=== PATIENT | male | born 1975 | race Caucasian/White ===

== ENCOUNTER 2019-08-15 20:36 | Inpatient (IN) | payer BC ==
[2019-08-15] MEDS ORDERED: HEPARIN SODIUM,PORCINE 5,000 UNIT/ML 1 ML VIAL IV PRN (21:16)
[2019-08-15] MEDS: HEPARIN SOD,PORK IN 0.45% NACL 25,000 UNIT in 0.45% NACL 1 250ML.BAG IV SCH (21:27)
--- NOTE | 2019-08-15 21:49 | ED ---
General Adult HPI - General Chief complaint: Chest Pain Stated complaint: Chest Pain Time Seen by Provider: 08/15/19 20:46 Source: patient, EMS Mode of arrival: EMS Limitations: no limitations - History of Present Illness Initial comments: Dictation was produced using Shareable[employer] dictation software. please excuse any grammatical, word or spelling errors. Chief Complaint: 44-year-old male transferred from [facility] for NSTEMI. History of Present Illness: 44-year-old male presents with NSTEMI. Patient is a 44-year-old male he was initially seen at [facility]. Patient has been having typical sounding chest pain has been ongoing intermittently for the last several days. He was worked up at [facility] found to have elevated troponin measuring 0.12. Patient states he is currently pain-free at this time. According to transferring physician patient did not have any findings of ST segment elevation MO. Transferred here for possible cardiac catheterization. Patient states he does have positive family history of acute coronary syndrome in the age of 40's. She was started on heparin. He was given aspirin. Patient's well-appearing at this time. Denies any chest pain currently. The ROS documented in this emergency department record has been reviewed and confirmed by me. Those systems with pertinent positive or negative responses have been documented in the HPI. All other systems are other negative and/or noncontributory. PHYSICAL EXAM: General Impression: Alert and oriented x3, not in acute distress HEENT: Normocephalic atraumatic, extra-ocular movements intact, pupils equal and reactive to light bilaterally, mucous membranes moist. Cardiovascular: Heart regular rate and rhythm, S1&S2 audible, no murmurs, rubs or gallops Chest: Lungs clear to auscultation bilaterally, no rhonchi, no wheeze, no rales Abdomen: Bowel sounds present, abdomen soft, non-tender, non-distended, no or ganomegaly Musculoskeletal: Pulses present and equal in all extremities, no peripheral edema Motor: no focal deficits noted Neurological: CN II-XII grossly intact, no focal motor or sensory deficits noted Skin: Intact with no visualized rashes Psych: Normal affect and mood ED course: 44-year-old male transferred from [facility] for non-ST segment elevation MO. As upon arrival are within acceptable limits. Repeat EKG was obtained showing nonspecific findings with T-wave inversion in 3. There is no findings to suggest ST segment elevation MO currently. Repeat troponin was obtained measuring at 2.050. Transfer documentation was reviewed in its entirety. Patient is currently pain-free. Discussed patient case with Dr. Harrington of [facility] physician group is willing to accept patients care. Patient continued on heparin drip. Cardiology to be consulted. EKG interpretation: Ventricular rate 77, normal sinus rhythm,. 172, QS 102, QTc 443. No MD prolongation, no QTC prolongation, no ST changes. There is a P wave inversion in lead 3. - Related Data Allergies Allergy/AdvReac Type Severity Reaction Status Date / Time No Known Allergies Allergy Verified 08/15/19 21:19 Review of Systems ROS Statement: Those systems with pertinent positive or pertinent negative responses have been documented in the HPI. ROS Other: All systems not noted in ROS Statement are negative. Past Medical History Past Medical History: No Reported History History of Any Multi-Drug Resistant Organisms: MRSA Date of last positivie culture/infection: MRSA 2003 MDRO Source:: left elbow Past Surgical History: Joint Replacement, Orthopedic Surgery Additional Past Surgical History / Comment(s): septic elbow, right elbow fx, multiple ortho surgeries. Past Psychological History: No Psychological Hx Reported Smoking Status: Never smoker Past Alcohol Use History: Occasional Past Drug Use History: None Reported General Exam Limitations: no limitations Course Vital Signs 08/15/19 08/15/19 20:41 21:30 Temperature 98.1 F Pulse Rate 89 76 Respiratory 18 18 Rate Blood Pressure 167/125 145/106 O2 Sat by Pulse 98 97 Oximetry Medical Decision Making - Lab Data Lab Results 08/15/19 Range/Units 20:52 Troponin I 2.050 H* (0.000-0.034) ng/mL Critical Care Time Critical Care Time: Yes Total Critical Care Time: 31 Disposition Clinical Impression: NSTEMI (non-ST elevated myocardial infarction) Disposition: ADMITTED IP TO THIS HOSP Condition: Fair Referrals: Fish Lopez MD [Primary Care Provider] - 1-2 days Decision Time: 21:49
[2019-08-15] MEDS ORDERED: NITROGLYCERIN SL TABS 0.4 MG TAB SUBLINGUAL PRN (21:50)
[2019-08-16] MEDS ORDERED: METOPROLOL TARTRATE 12.5 MG TAB PO SCH (00:15)
[2019-08-16] MEDS: oxyCODONE-APAP 5-325MG 1 EACH TAB PO PRN ×3 (00:50→21:28)
[2019-08-16 03:45] LABS: Cholesterol 202 mg/dL (<200); HDL Cholesterol 41 mg/dL (40-60); Triglycerides 405 mg/dL (<150)
[2019-08-16 07:28] LABS: Basophils % (A) 1 %; Eosinophils # (A) 0.3 k/uL (0-0.7); Eosinophils % (A) 3 %; HCT 40.5 % (39.0-53.0); HGB 14.6 gm/dL (13.0-17.5); Lymphocytes # (A) 1.8 k/uL (1.0-4.8); Lymphocytes % (A) 24 %; MCH 32.9 pg (25.0-35.0); MCHC 35.9 g/dL (31.0-37.0); MCV 91.4 fL (80.0-100.0); Mean Platelet Volume 6.4; Monocytes # (A) 0.5 k/uL (0-1.0); Monocytes % (A) 6 %; Neutrophils # (A) 4.8 k/uL (1.3-7.7); Neutrophils % (A) 64 %; Platelet Count 257 k/uL (150-450); RBC 4.43 m/uL (4.30-5.90); RDW 12.9 % (11.5-15.5); WBC 7.4 k/uL (3.8-10.6)
[2019-08-16 07:35] LABS: African American GFR (CKD) >90 (>60 ml/min/1.73 sqM); Anion Gap 10 mmol/L; Blood Urea Nitrogen 15 mg/dL (9-20); Calcium 9.1 mg/dL (8.4-10.2); Carbon Dioxide 23 mmol/L (22-30); Chloride 107 mmol/L (98-107); Glucose 103 mg/dL (74-99); Non-African American GFR(CKD) >90 (>60 ml/min/1.73 sqM); Potassium 3.7 mmol/L (3.5-5.1); Sodium 140 mmol/L (137-145)
--- NOTE | 2019-08-16 07:39 | P.HPIM ---
History of Present Illness H&P Date: 08/16/19 Chief Complaint: chest pain 44 -year-old male with no significant past medical history Patient comes in due to chest pain left-sided radiating to the center described it as tightness and at times sharp the worst was 6-7 out of 10 and currently was around 3-4 out of 10 in severity. Denies any associated sweating, palpitations, nausea, vomiting, shortness of breath. Patient reports that over the past 2 weeks he's been having these attacks of chest pain off and on lasting anywhere between 5 min to 1 hour what he would do is just rest and wait for the attack to go away. patient used to play a lot of sports he is athletically well developed muscular yael. 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 He reports the chest pain attacks usually happens when he is slowing down. Today as he was coming back from work he started feeling this chest pain again reported to his who insisted that he goes to the hospital to get evaluated. He went to [facility] and he was found to have elevated troponin at 0.12, EKG showed normal sinus rhythm his labs were pretty much unremarkable otherwise he was sent to our hospital for cardiology evaluation. Patient showed me cholesterol profile from December 2018 and showed LDL of 108, HDL of 35, and triglyceride of 118. He's been having annual checkups and his doctors always gave him clean bill of health Currently still reporting chest pain 3 out of 10 in severity with repeated EKG she tells showing normal sinus rhythm. Repeat troponin was elevated up to 2 in the ED patient was started on heparin drip and admitted for non-STEMI. Patient does report strong family history of premature CAD in his father side of the family Patient reported a fall 2 weeks ago on his left hip it was accidental as he tripped patient also reports cold symptoms of upper respiratory like infection around 2- 3 weeks ago which has currently resolved Review of Systems Pertinent positives as noted in HPI. All other systems were reviewed and are negative Past Medical History Past Medical History: No Reported History History of Any Multi-Drug Resistant Organisms: MRSA Date of last positivie culture/infection: MRSA 2003 MDRO Source:: left elbow Past Surgical History: Joint Replacement, Orthopedic Surgery Additional Past Surgical History / Comment(s): septic elbow, right elbow fx, multiple ortho surgeries. Past Psychological History: No Psychological Hx Reported Smoking Status: Never smoker Past Alcohol Use History: Occasional Past Drug Use History: None Reported - Past Family History Father Family Medical History: Coronary Artery Disease (CAD) Additional Family Medical History / Comment(s): father had his first PA at age 40, and multiple PA's therafter Mother Family Medical History: No Reported History Medications and Allergies Home Medications Medication Instructions Recorded Confirmed Type No Known Home Medications 08/15/19 08/15/19 History Allergies Allergy/AdvReac Type Severity Reaction Status Date / Time No Known Allergies Allergy Verified 08/15/19 21:55 Physical Exam Vitals: Vital Signs Temp Pulse Resp BP Pulse Ox 08/15/19 22:44 98.1 F 76 18 145/106 97 08/15/19 21:30 76 18 145/106 97 08/15/19 20:41 98.1 F 89 18 167/125 98 Intake and Output 08/15/19 08/15/19 08/15/19 06:59 14:59 22:59 Other: Weight 100.698 kg Constitutional: No acute distress, conversant, pleasant Eyes: Anicteric sclerae, moist conjunctiva, no lid-lag Pupils equal round reactive to light ENMT: NC/AT Oropharynx clear, no erythema, exudates Neck: Supple, FROM, no masses, or JVD No carotid bruits No thyromegaly Lungs: Clear to auscultation Clear to percussion Normal respiratory effort, no accessory muscle use Cardiovascular: Heart regular in rate and rhythm, No murmurs, gallops, or rubs No peripheral edema Abdominal: Soft Nontender, no guarding, rebound or rigidity Abdomen moving with respiration Normoactive bowel sounds No hepatomegaly, No splenomegaly No palpable mass No abdominal wall hernia noted Skin: Normal temperature, tone, texture, turgor No induration No subcutaneous nodules No rash, lesions No ulcers Extremities: there is large area of ecchymosis and bruising over the left hip No digital cyanosis No clubbing Pedal pulses intact and symmetrical Radial pulses intact and symmetrical No calf tenderness Psychiatric: Alert and oriented to person, place and time Appropriate affect fair judgement Neuro Muscles Strength 5/5 in all 4 extremities Sensation to light touch grossly present throughout Cranial nerves II-XII grossly intact No focal sensory deficits Lymphatics: no palpable cervical or supraclavicular , or inguinal lymph nodes Results CBC & Chem 7: 08/16/19 03:02 Labs: Abnormal Lab Results - Last 24 Hours (Table) 08/15/19 Range/Units 20:52 Troponin I 2.050 H* (0.000-0.034) ng/mL Assessment and Plan Assessment: 44-year-old male with no significant past medical history. transferred from [facility] for chest pain and elevated troponins to rule out ACS. Plan: NSTEMI and chest pain cardiac monitoring Cardiac consult Heparin drip Aspirin Low-dose beta machelle due to tachycardia Patient refuses morphine or Dilaudid, opted in for Percocet as it worked for him in the past, will be ordered when necessary for uncontrolled pain Follow-up cardiac enzymes Lipid profile Nothing by mouth after midnight I also have concerns for myocarditis due to his recent history of upper respiratory viral infection and atypical features of his chest pain, ordered echocardiogram CODE STATUSfull code DVT prophylaxis:on heparin drip for acute coronary syndrome Discussed with: Patient, ER, RN Anticipated length of stay < than [address]: home A total of 60 minutes was spent on the care of this complex patient more than 50% of the time was spent in counseling and care coordination.
[2019-08-16] MEDS: ATORVASTATIN 40 MG TAB PO SCH (08:34)
[2019-08-16] MEDS: METOPROLOL TARTRATE 25 MG TAB PO SCH ×2 (08:35→21:28)
[2019-08-16] MEDS: ASPIRIN 325 MG TAB PO SCH (08:35)
[2019-08-16] MEDS ORDERED: ALPRAZolam 0.25 MG TAB PO PRN (09:33)
[2019-08-16] MEDS ORDERED: SODIUM CHLORIDE 0.9% 1,000 ML in EMPTY BAG 1 BAG IV ONE (09:33)
[2019-08-16] MEDS ORDERED: ALPRAZolam 0.5 MG TAB PO PRN (09:33)
[2019-08-16] MEDS ORDERED: LORazepam 2 MG/ML INJ IV PRN ×3 (10:49)
[2019-08-16] MEDS ORDERED: THIAMINE 100 MG/ML 2 ML VIAL IM STA (10:49)
--- NOTE | 2019-08-16 10:54 | P.PN ---
Subjective Progress Note Date: 08/16/19 Principal diagnosis: Non-STEMI Patient is doing fairly well today. He denies any chest pain or shortness of breath. Patient informed me that he usually drinks 6-8 beers daily ap proximately 5 days per week. He does not smoke cigarettes. He has significant family history of premature coronary artery disease in his father. Objective - Vital Signs Vital signs: Vital Signs Temp 97.1 F L 08/16/19 04:00 Pulse 73 08/16/19 04:00 Resp 17 08/16/19 04:00 BP 136/78 08/16/19 04:00 Pulse Ox 99 08/16/19 04:00 Intake & Output 08/15/19 08/16/19 08/16/19 18:59 06:59 18:59 Intake Total 81.477 71.698 Balance 81.477 71.698 Weight 102.9 kg Intake: IV 20 Invasive Line 1 20 Intake, IV Titration 61.477 71.698 Amount Heparin Sod,Pork in 0.45% 61.477 71.698 NaCl 25,000 unit In 0.45 % NaCl 1 250ml.bag @ 9 UNITS/KG/HR 9.063 mls/hr IV .Q24H [facility] Rx#: [id number] Other: Voiding Method Toilet # Voids 1 1 - Exam General: The patient is awake and alert, in no distress Eye: there is normal conjunctiva bilaterally. Neck: The neck is supple, there is no JVD. Cardiovascular: Normal S1-S2, no S3-S4, no murmurs. Respiratory: Lungs clear to auscultation bilaterally Gastrointestinal: Abdomen is soft, nontender Musculoskeletal: There is no pedal edema. Neurological:. Speech is normal. Skin: Skin is warm and dry - Labs CBC & Chem 7: 08/16/19 03:02 08/16/19 03:02 Labs: Abnormal Lab Results - Last 24 Hours (Table) 08/15/19 08/16/19 08/16/19 Range/Units 20:52 03:02 03:02 APTT (22.0-30.0) sec Glucose (74-99) mg/dL Troponin I 2.050 H* 2.950 H* (0.000-0.034) ng/mL Triglycerides 405 H (<150) mg/dL Cholesterol 202 H (<200) mg/dL 08/16/19 08/16/19 08/16/19 Range/Units 03:02 08:25 08:25 APTT 32.7 H (22.0-30.0) sec Glucose 103 H (74-99) mg/dL Troponin I 3.090 H* (0.000-0.034) ng/mL Triglycerides (<150) mg/dL Cholesterol (<200) mg/dL Assessment and Plan Assessment: 1. Non-ST elevation MD. Management medically currently on IV heparin, aspirin, metoprolol, and Lipitor. Patient was seen and evaluated by cardiology. Plan for left heart catheterization later today. Echocardiogram pending. 2. Hyperlipidemia with hypertriglyceridemia, started on Lipitor daily. 3. Alcohol abuse, counseled extensively to cut down. [facility] protocol as needed. Today, I reviewed his medication list and lab work results. We will continue current regimen. Repeat lab work in the morning. Appreciate cardiology recommendations.
--- NOTE | 2019-08-16 12:37 | P.CRDCN ---
History of Present Illness History of present illness: HISTORY OF PRESENTING ILLNESS This is a pleasant 44-year-old male with no significant past medical history. He states his father had his first cardiac event in his 40s. He does drink alcohol daily. He presented to [facility] with chest pain. 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 We have been asked to see him in consultation for chest pain with troponin elevation. Is seen and examined resting comfortably in bed in no acute distress. He states for the previous one week he has been having intermittent episodes of chest discomfort in the midsternal region. Initially has symptoms of common they would subside with rest lasting less than 5 minutes at a time. However on Sunday morning he woke up around 3:00 in the morning with a heavy crushing type chest pain in the midsternal region. This discomfort persisted throughout the day while he was at work with no specific aggravating or alleviating factor. There was episodes where radiate through to his back and down his left arm. He denies associated shortness of breath, dizziness, palpitations, nausea, vomiting or diaphoresis. After work and having ongoing chest discomfort he decided to present to the emergency department to [facility]. Upon arrival there he was noted to have his initial troponin was elevated at 0.12. He was transferred here for further cardiac evaluation. Subsequent troponins were 2.05, 2.95 and 3.09. He continues to have a vague mild achy discomfort in the midsternal region. DIAGNOSTICS EKG reveals sinus mechanism with no acute ST or T wave abnormalities noted. Isolated T-wave inversions in lead 3. Chest xray at [facility] was unremarkable. Laboratory reviewed, CBC unremarkable, sodium 140, potassium 3.7, creatinine 0.87, troponin 2.05, 2.95 and 3.09, triglycerides 405, LDL unable to be a loculated. He takes no daily cardiac medications. REVIEW OF SYSTEMS At the time of my exam: CONSTITUTIONAL: Denies fever or chills. CARDIOVASCULAR: Complains of chest pain. Denies shortness of breath, orthopnea, PND or palpitations. RESPIRATORY: Denies cough. GASTROINTESTINAL: Denies abdominal pain, diarrhea, constipation, nausea or vomiting. MUSCULOSKELETAL: Denies myalgias. NEUROLOGIC: Denies numbness, tingling or weakness. ENDOCRINE: Denies fatigue, weight change, polydipsia or polyurina. GENITOURINARY: Denies burning, hematuria or urgency with micturation. HEMATOLOGIC: Denies history of anemia or bleeding. PHYSICAL EXAMINATION Blood pressure 131/9674 heart rate 74 afebrile and maintaining oxygen saturaiton on room air. CONSTITUTIONAL: No apparent distress. HEENT: Head is normocephalic. Pupils are equal, round. Sclerae anicteric. Mucous membranes of the mouth are moist. No JVD. No carotid bruit. CHEST EXAMINATION: Lungs are clear to auscultation. No chest wall tenderness is noted on palpation or with deep breathing. HEART EXAMINATION: Regular rate and rhythm. S1, S2 heard. No murmurs, gallops or rub. ABDOMEN: Soft, nontender. Positive bowel sounds. EXTREMITIES: 2+ peripheral pulses, no lower extremity edema and no calf tenderness. NEUROLOGIC EXAMINATION: Patient is awake, alert and oriented x3. ASSESSMENT Non-ST elevated myocardial infarction Dyslipidemia Significant family history for premature coronary artery disease Daily alcohol intake Obesity, BMI 33 PLAN Echocardiogram has been obtained and reviewed. Recommend proceeding with cardiac catheterization to assess coronary arteries. I have discussed the risks, benefits and alternative therapies for the above- mentioned procedure and for both sedation/analgesia as well as necessary blood product administration, if indicated, as they pertain to this patient. The patient has indicated understanding and acceptance of the risks and procedures discussed. Questions have been answered appropriately and he is agreeable to move forward with the above-stated procedure. Initiate atorvastatin 40 mg daily, Lopressor 25 mg twice a day and continue heparin infusion until just prior to cardiac catheterization. Complete alcohol cessation recommended. Diet and exercise recommended for lowering of cholesterol and weight loss. Further recommendations to follow based upon clinical course. Thank you kindly for this consultation. Nurse Practitioner note has been reviewed, I agree with a documented findings and plan of care. Patient was seen and examined. Past Medical History Past Medical History: No Reported History History of Any Multi-Drug Resistant Organisms: MRSA Date of last positivie culture/infection: MRSA 2003 MDRO Source:: left elbow Past Surgical History: Joint Replacement, Orthopedic Surgery Additional Past Surgical History / Comment(s): septic elbow, right elbow fx, multiple ortho surgeries. Past Psychological History: No Psychological Hx Reported Smoking Status: Never smoker Past Alcohol Use History: Occasional Past Drug Use History: None Reported - Past Family History Father Family Medical History: Coronary Artery Disease (CAD) Additional Family Medical History / Comment(s): father had his first KS at age 40, and multiple KS's therafter Mother Family Medical History: No Reported History Medications and Allergies Home Medications Medication Instructions Recorded Confirmed Type No Known Home Medications 08/15/19 08/15/19 History Allergies Allergy/AdvReac Type Severity Reaction Status Date / Time No Known Allergies Allergy Verified 08/15/19 21:55 Physical Exam Vitals: Vital Signs Temp Pulse Pulse Resp BP BP Pulse Ox 08/16/19 04:00 97.1 F L 73 17 136/78 99 08/16/19 00:00 98.6 F 81 21 139/97 98 08/15/19 22:44 98.1 F 76 18 145/106 97 08/15/19 21:30 76 18 145/106 97 08/15/19 20:41 98.1 F 89 18 167/125 98 Intake and Output 08/15/19 08/16/19 08/16/19 22:59 06:59 14:59 Intake Total 81.477 Balance 81.477 Intake: IV 20 Invasive Line 1 20 Intake, IV Titration 61.477 Amount Heparin Sod,Pork in 0.45% 61.477 NaCl 25,000 unit In 0.45 % NaCl 1 250ml.bag @ 9 UNITS/KG/HR 9.063 mls/hr IV .Q24H [facility] Rx#: [id number] Other: Voiding Method Toilet # Voids 1 Weight 100.698 kg 102.9 kg Results 08/16/19 03:02 08/16/19 03:02 Cardiac Enzymes 08/15/19 08/16/19 Range/Units 20:52 03:02 Troponin I 2.050 H* 2.950 H* (0.000-0.034) ng/mL Coagulation 08/16/19 Range/Units 03:02 APTT 27.5 (22.0-30.0) sec Lipids 08/16/19 Range/Units 03:02 Triglycerides 405 H (<150) mg/dL Cholesterol 202 H (<200) mg/dL HDL Cholesterol 41 (40-60) mg/dL CBC 08/16/19 Range/Units 03:02 WBC 7.4 (3.8-10.6) k/uL RBC 4.43 (4.30-5.90) m/uL Hgb 14.6 (13.0-17.5) gm/dL Hct 40.5 (39.0-53.0) % Plt Count 257 (150-450) k/uL Comprehensive Metabolic Panel 08/16/19 Range/Units 03:02 Sodium 140 (137-145) mmol/L Potassium 3.7 (3.5-5.1) mmol/L Chloride 107 (98-107) mmol/L Carbon Dioxide 23 (22-30) mmol/L BUN 15 (9-20) mg/dL Creatinine 0.87 (0.66-1.25) mg/dL Glucose 103 H (74-99) mg/dL Calcium 9.1 (8.4-10.2) mg/dL Current Medications Generic Name Dose Route Start Last Admin Trade Name Sushilq PRN Reason Stop Dose Admin Aspirin 325 mg 08/16/19 09:00 Aspirin PO DAILY [facility] Heparin Sodium (Porcine) 0 unit 08/15/19 21:16 Heparin IV PER PROTOCOL PRN Low PTT Protocol Heparin Sodium/Sodium Chloride 250 mls @ 9.063 mls/hr 08/15/19 21:30 08/16/19 04:14 25,000 unit/ Sodium Chloride IV 12 units/kg/hr .Q24H [facility] 12.084 mls/hr Titration Protocol 9 UNITS/KG/HR Metoprolol Tartrate 12.5 mg 08/16/19 00:15 08/16/19 00:51 Lopressor PO 12.5 mg BID [facility]RIS Administration Nitroglycerin 0.4 mg 08/15/19 21:50 08/15/19 23:26 Nitrostat SUBLINGUAL 0.4 mg Q5M PRN Administration Chest Pain Oxycodone/Acetaminophen 1 each 08/16/19 00:03 08/16/19 00:50 Percocet 5-325 PO 1 each Q6HR PRN Administration Pain Intake and Output 08/15/19 08/16/19 08/16/19 22:59 06:59 14:59 Intake Total 81.477 Balance 81.477 Intake: IV 20 Invasive Line 1 20 Intake, IV Titration 61.477 Amount Heparin Sod,Pork in 0.45% 61.477 NaCl 25,000 unit In 0.45 % NaCl 1 250ml.bag @ 9 UNITS/KG/HR 9.063 mls/hr IV .Q24H [facility] Rx#: [id number] Other: Voiding Method Toilet # Voids 1 Weight 100.698 kg 102.9 kg 08/16/19 03:02 08/16/19 03:02
[2019-08-16] MEDS ORDERED: LIDOCAINE 1% INJ 10MG/ML (20 ML MDV) ONE (13:36)
[2019-08-16] MEDS ORDERED: fentaNYL (PF) 50 MCG/ML 2 ML AMP ONE (13:36)
[2019-08-16] MEDS ORDERED: IV FLUID CONTINUATION 500 ML IV ONE (13:40)
[2019-08-16] MEDS ORDERED: MIDAZOLAM 2 MG/2 ML VIAL IV ONE (13:53)
[2019-08-16] MEDS ORDERED: fentaNYL (PF) 50 MCG/ML 2 ML AMP IV ONE (13:53)
[2019-08-16] MEDS ORDERED: LIDOCAINE 1% INJ 10MG/ML (20 ML MDV) SQ ONE (13:58)
[2019-08-16] MEDS ORDERED: BIVALIRUDIN BOLUS 250 MG/50 ML IV ONE (14:23)
[2019-08-16] MEDS ORDERED: MIDAZOLAM 2 MG/2 ML VIAL IVP ONE (14:23)
[2019-08-16] MEDS ORDERED: BIVALIRUDIN 250 MG in SODIUM CHLORIDE 0.9% 50 ML IV ONE (14:24)
[2019-08-16] MEDS ORDERED: NITROGLYCERIN 1000MCG/10ML SYRINGE INTRACORON ONE ×3 (14:30→14:35)
[2019-08-16] MEDS ORDERED: CLOPIDOGREL 75 MG TAB PO ONE (14:34)
[2019-08-16] MEDS ORDERED: IOPAMIDOL-370 125ML BTL INJ ONE (14:35)
[2019-08-16] MEDS ORDERED: CLOPIDOGREL 75 MG TAB ONE (14:35)
[2019-08-16] MEDS ORDERED: niCARdipine Syringe (1,000 mcg/10 mL) INTRACORON ONE (14:42)
--- NOTE | 2019-08-16 14:45 | ECHOF ---
Referral Reason:chest pain MEASUREMENTS -------- HEIGHT: 182.9 cm WEIGHT: 100.7 kg BP: 136/78 RVIDd: 3.4 cm (< 3.3) IVSd: 1.1 cm (0.6 - 1.1) LVIDd: 4.7 cm (3.9 - 5.3) LVPWd: 1.3 cm (0.6 - 1.1) IVSs: 2.0 cm LVIDs: 2.5 cm LVPWs: 1.7 cm LAESV Index (A-L): 32.99 ml/m Ao Diam: 3.1 cm (2.0 - 3.7) AV Cusp: 2.3 cm (1.5 - 2.6) LA Diam: 3.2 cm (2.7 - 3.8) MV EXCURSION: 16.312 mm (> 18.000) MV EF SLOPE: 84 mm/s (70 - 150) EPSS: 0.5 cm MV E Prosper: 0.90 m/s MV DecT: 125 ms MV A Prosper: 0.78 m/s MV E/A Ratio: 1.16 RAP: 5.00 mmHg RVSP: 16.30 mmHg TAPSE: 32.15 mm FINDINGS -------- Sinus rhythm. This was a technically difficult study with suboptimal views. The left ventricular size is normal. There is mild concentric left ventricular hypertrophy. Overa ll left ventricular systolic function is normal with, an EF between 55 - 60 %. The diastolic fillin g pattern is normal for the age of the patient 9.11. The right ventricle is normal in size. The right ventricular systolic function is normal. The left atrial size is normal. LA is midly dilated 29-33ml/m2. The right atrial size is normal. Interatrial and interventricular septum intact. The aortic valve is trileaflet and appears structurally normal. The mitral valve is normal. Mild mitral regurgitation is present , predominately a posteriorly dire cted jet. The tricuspid valve appears structurally normal. Mild tricuspid regurgitation present. Right vent ricular systolic pressure is normal at < 35 mmHg. There is no pulmonic regurgitation present. The aortic root size is normal. IVC Not well visulized. There is no pericardial effusion. CONCLUSIONS -------- 1. Sinus rhythm. 2. This was a technically difficult study with suboptimal views. 3. The left ventricular size is normal. 4. There is mild concentric left ventricular hypertrophy. 5. Overall left ventricular systolic function is normal with, an EF between 55 - 60 %. 6. The diastolic filling pattern is normal for the age of the patient 9.11 7. The right ventricle is normal in size. 8. The right ventricular systolic function is normal. 9. The left atrial size is normal. 10. LA is midly dilated 29-33ml/m2. 11. The right atrial size is normal. 12. Interatrial and interventricular septum intact. 13. The aortic valve is trileaflet and appears structurally normal. 14. The mitral valve is normal. 15. Mild mitral regurgitation is present. 16. , predominately a posteriorly directed jet. 17. The tricuspid valve appears structurally normal. 18. Mild tricuspid regurgitation present. 19. Right ventricular systolic pressure is normal at < 35 mmHg. 20. There is no pulmonic regurgitation present. 21. The aortic root size is normal. 22. IVC Not well visulized. 23. There is mild inferolateral hypokinesis. BANKRUPTCY ASSISTANT: Zarina Diallo RDCS
[2019-08-16] MEDS ORDERED: IOPAMIDOL-370 50ML BTL INJ ONE (14:46)
[2019-08-16] MEDS ORDERED: MAG HYDROX/AL HYDROX/SIMETH 30 ML CUP PO PRN (14:53)
[2019-08-16] MEDS ORDERED: ZOLPIDEM 5 MG TAB PO PRN (14:53)
[2019-08-16] MEDS ORDERED: ATROPINE SULFATE 0.1 MG/ML 10ML SYRINGE IV PRN (14:53)
[2019-08-16] MEDS ORDERED: NITROGLYCERIN SL TABS 0.4 MG TAB SUBLINGUAL PRN (14:53)
[2019-08-16] MEDS ORDERED: RX INFO: IV CONTRAST WAS GIVEN 1 EACH MISC MISCELLANE PRN (14:53)
[2019-08-16] MEDS ORDERED: SODIUM CHLORIDE 0.9% 1,000 ML IV SCH (15:00)
[2019-08-16] MEDS: THIAMINE 100 MG TAB PO SCH (16:43)
--- NOTE | 2019-08-16 18:47 | PTCA ---
PERCUTANEOUSTRANS CORORONARY ANGIOGRAPHY DATE OF SERVICE: 08/09/2019 PERFORMING PHYSICIAN: Dominick Caicedo MD. PROCEDURE PERFORMED: Successful stenting of the mid left anterior descending artery using 3.0 x 28 mm Xience ANALILIA which was post dilated using 3.5 mm NC balloon with an excellent angiographic result and reduction of stenosis from 100% to 0%. INDICATION: This is a 44-year-old gentleman with history of hypertension and dyslipidemia who presented to the hospital with chest discomfort. He was ruled in for acute non-ST- elevation myocardial infarction. He underwent a heart catheterization by Dr. Gutierrez and that revealed acute total occlusion of the mid left circumflex. Decision was made towards percutaneous coronary intervention. APPROACH: Right common femoral artery. COMPLICATION: None. LEVEL OF SEDATION: Moderate with sedation length 28 minutes. A diagnostic heart catheterization was performed by Dr. Gutierrez earlier today. PROCEDURE DESCRIPTION: Anticoagulation was initiated using Angiomax. Subsequently, I did engage the left main using JL5 guide. Subsequently, I did wire the LAD and left circumflex using a whisper wire. After that I did balloon angioplasty using 2.5 x 12 mm balloon which was inflated under 12 atmospheres for 20 seconds before I deployed a 3.0 x 28 mm Xience ANALILIA, where the stent was positioned under fluoroscopy guidance and deployed under 10 atmospheres for 20 seconds. I post dilated the stent using 3.5 mm NC balloon which was inflated under 16 atmospheres for 20 seconds. The following angiogram showed excellent angiographic results and the procedure was completed without any complication. POSTPROCEDURE MANAGEMENT: 1. Dual anti-platelet therapy. 2. Risk factor modifications. 3. Aggressive cholesterol control. 4. Follow up with the patient. MMODL / IJN: [id number] /
[2019-08-16] MEDS: HEPARIN SOD,PORK IN 0.45% NACL 25,000 UNIT in 0.45% NACL 1 250ML.BAG IV SCH (21:51)
[2019-08-17] MEDS: oxyCODONE-APAP 5-325MG 1 EACH TAB PO PRN (03:25)
[2019-08-17 06:31] LABS: African American GFR (CKD) >90 (>60 ml/min/1.73 sqM); Anion Gap 6 mmol/L; Blood Urea Nitrogen 15 mg/dL (9-20); Calcium 8.9 mg/dL (8.4-10.2); Carbon Dioxide 25 mmol/L (22-30); Chloride 108 mmol/L (98-107); Glucose 91 mg/dL (74-99); Non-African American GFR(CKD) >90 (>60 ml/min/1.73 sqM); Potassium 4.1 mmol/L (3.5-5.1); Sodium 139 mmol/L (137-145)
[2019-08-17] MEDS: THIAMINE 100 MG TAB PO SCH (07:08)
[2019-08-17] MEDS: ASPIRIN 325 MG TAB PO SCH (08:36)
[2019-08-17] MEDS: METOPROLOL TARTRATE 25 MG TAB PO SCH (08:36)
[2019-08-17] MEDS: ATORVASTATIN 40 MG TAB PO SCH (08:37)
[2019-08-17 08:39] VITALS: BP 129/60; PULSE 71; RESP 16; TEMP 97
[2019-08-17] MEDS ORDERED: LISINOPRIL 2.5 MG TAB PO SCH (10:15)
--- NOTE | 2019-08-17 10:31 | P.PN ---
Subjective HISTORY OF PRESENTING ILLNESS This is a pleasant 44-year-old male with no significant past medical history. He states his father had his first cardiac event in his 40s. He does drink alcohol daily. He presented to [facility] with chest pain. 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 He underwent successful drug-eluting stent placement per Dr. Caicedo. Echocardiogram revealed preserved LV systolic function with no wall motion abnormalities. He is seen and examined sitting up in the chair in no acute distress. He denies any further symptoms of chest discomfort, shortness of breath, dizziness or palpitations. Right groin access site is soft, clean, dry and intact with no evidence of hematoma or bleeding. There is very mild ecchymosis noted at the site. Blood pressure 129/60 heart rate 71 afebrile maintaining oxygen saturation on room air. Laboratory data reviewed, sodium 139, potassium 4.1, creatinine 0.76. Currently maintained on aspirin 81 mg daily, Plavix 75 mg daily, atorvastatin 40 mg daily and Lopressor 25 mg twice a day. PHYSICAL EXAMINATION CONSTITUTIONAL: No apparent distress. HEENT: Head is normocephalic. Pupils are equal, round. Sclerae anicteric. Mucous membranes of the mouth are moist. No JVD. No carotid bruit. CHEST EXAMINATION: Lungs are clear to auscultation. No chest wall tenderness is noted on palpation or with deep breathing. HEART EXAMINATION: Regular rate and rhythm. S1, S2 heard. No murmurs, gallops or rub. EXTREMITIES: 2+ peripheral pulses, no lower extremity edema and no calf tenderness. Right femoral access site clean, dry and intact, mild ecchymosis, no evidence of hematoma or bleeding. ASSESSMENT Non-ST elevated myocardial infarction Dyslipidemia Significant family history for premature coronary artery disease Daily alcohol intake Obesity, BMI 33 PLAN Initiate on a small dose of lisinopril daily. Continue aspirin, Plavix, atorvastatin and metoprolol as previously ordered. Stable for discharge from a cardiac perspective. Patient advised to follow-up in the office in one week with Dr. Gutierrez. Nurse Practitioner note has been reviewed, I agree with a documented findings and plan of care. Patient was seen and examined. Objective - Vital Signs Vital signs: Vital Signs Temp 97 F L 08/17/19 08:39 Pulse 71 08/17/19 08:39 Resp 16 08/17/19 08:39 BP 129/60 08/17/19 08:39 Pulse Ox 97 08/17/19 08:39 Intake & Output 08/16/19 08/17/19 08/17/19 18:59 06:59 18:59 Intake Total 154.427 2420 562 Balance 667.699 7832 562 Weight 100.4 kg Intake: IV 135 30 Invasive Line 1 30 Intake, IV Titration 71.698 Amount Heparin Sod,Pork in 0.45% 71.698 NaCl 25,000 unit In 0.45 % NaCl 1 250ml.bag @ 9 UNITS/KG/HR 9.063 mls/hr IV .Q24H [facility] Rx#: [id number] Oral 1080 562 Other: Voiding Method Toilet # Voids 1 1 1 - Labs CBC & Chem 7: 08/16/19 03:02 08/17/19 06:04 Labs: Abnormal Lab Results - Last 24 Hours (Table) 08/17/19 Range/Units 06:04 Chloride 108 H (98-107) mmol/L
--- NOTE | 2019-08-17 10:43 | P.DS ---
Providers Date of admission: 08/15/19 21:51 Expected date of discharge: 08/17/19 Attending physician: Manpreet Tyler MD Consults: 08/15/19 21:50 Consult Physician Urgent Consulting Provider: Srini Gutierrez Consult Reason/Comments: nstemi Do you want consulting provider notified?: Yes 08/16/19 14:54 Consult Physician Routine Consulting Provider: [facility] Consult Reason/Comments: Post Interventional patient Do you want consulting provider notified?: Already Contacted Primary care physician: [facility] Course: This is a 44-year-old male with past medical history significant for hyperlipidemia and alcohol abuse who presented to the emergency room with chest pain. Patient was evaluated in the ER and was found to have evidence of non-ST elevation AK. Patient was admitted to the hospital and was started on optimal medical treatment. He was seen and evaluated by cardiology. He underwent a left heart cath showing significant stenosis of the mid LAD status post successful stent placement. Echocardiogram showed preserved ejection fraction with no significant valvular abnormalities. Patient was cleared by cardiology for discharge. He will be discharged on optimal medical regimen including dual antiplatelet therapy. He was counseled extensively regarding medication compliance. He will follow-up with cardiology in the office. For further details about this hospitalization please refer to the electronic chart. Patient Condition at Discharge: Fair Plan - Discharge Summary Discharge Rx Participant: No New Discharge Prescriptions: New Aspirin 81 mg PO DAILY tab Atorvastatin [Lipitor] 40 mg PO DAILY #90 tab Metoprolol Tartrate [Lopressor] 25 mg PO BID #180 tab Clopidogrel [Plavix] 75 mg PO DAILY #90 tab Lisinopril [Zestril] 2.5 mg PO DAILY #90 tab Discharge Medication List Aspirin 81 mg PO DAILY tab 08/17/19 [Rx] Atorvastatin [Lipitor] 40 mg PO DAILY #90 tab 08/17/19 [Rx] Clopidogrel [Plavix] 75 mg PO DAILY #90 tab 08/17/19 [Rx] Lisinopril [Zestril] 2.5 mg PO DAILY #90 tab 08/17/19 [Rx] Metoprolol Tartrate [Lopressor] 25 mg PO BID #180 tab 08/17/19 [Rx] Follow up Appointment(s)/Referral(s): Fish Lopez MD [Primary Care Provider] - 1-2 days (Please call office to schedule follow-up appointment. ) Srini Gutierrez MD [STAFF PHYSICIAN] - 1 Week (The office will call you with appointment date and time. 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 Discharge Disposition: HOME SELF-CARE
[2019-08-17] MEDS ORDERED: CLOPIDOGREL 75 MG TAB PO SCH (12:00)
[2019-08-18] MEDS ORDERED: ASPIRIN 81 MG PO SCH (09:00)
--- NOTE | 2019-09-02 12:16 | CC ---
CARDIAC CATHETERIZATION REPORT INDICATION: Non ST-segment elevation WA. PROCEDURE NOTE: After obtaining informed consent, left heart catheterization and coronary angiogram were performed via the right femoral artery using standard Rhiannon catheters. Patient tolerated the procedure well without any obvious immediate complication. The patient received moderate conscious sedation. Total sedation time was 20 minutes. FINDINGS: 1. HEMODYNAMICS: Left ventricular end-diastolic pressure is 12-14 mm. There is no significant gradient across the aortic valve. 2. LEFT VENTRICULOGRAM: Left ventriculogram is not performed. 3. ANGIOGRAPHIC DATA. LEFT MAIN CORONARY ARTERY: Left main coronary artery is a normal-sized vessel, it is free of stenosis. Divides into left anterior descending coronary artery and circumflex coronary artery. 1. LAD: The circumflex coronary artery appears acutely occluded, mid LAD shows mild nonobstructive disease. 2. Right coronary artery is a large dominant vessel and is free of significant disease. 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 PLAN: Dr. Suazo, the on-call detacher, will review the angiographic data and decide on revascularization. MMODL / IJN: [id number] /
== END 2019-08-17 11:55 | disposition home or self-care (01) | DRG 247 ==
LOC: EC 20:36 → 3SCARD 21:51
PROVIDERS: ADMIT Internal Medicine; ATTEND Internal Medicine
PROC: 027034Z Dilation of Coronary Artery, One Artery with Drug-eluting Intraluminal Device, Percutaneous Approach (ICD-10-PCS; principal; 2019-08-16 11:26)
PROC: B2111ZZ Fluoroscopy of Multiple Coronary Arteries using Low Osmolar Contrast (ICD-10-PCS; principal; 2019-08-16 11:26)
DX: I21.4 Non-ST elevation (NSTEMI) myocardial infarction (principal); E66.9 Obesity, unspecified; Z68.33 Body mass index [BMI] 33.0-33.9, adult; E78.5 Hyperlipidemia, unspecified; E78.1 Pure hyperglyceridemia; I25.10 Atherosclerotic heart disease of native coronary artery without angina pectoris; I10 Essential (primary) hypertension; F10.10 Alcohol abuse, uncomplicated; S70.02XA Contusion of left hip, initial encounter; Z86.14 Personal history of Methicillin resistant Staphylococcus aureus infection; Z87.81 Personal history of (healed) traumatic fracture; Z98.890 Other specified postprocedural states; Z82.49 Family history of ischemic heart disease and other diseases of the circulatory system; W01.0XXA Fall on same level from slipping, tripping and stumbling without subsequent striking against object, initial encounter
CPT/HCPCS: 36415; 80048; 80061; 83735; 84484; 85025; 85652; 85730; 86140; 93005; 93306; 93458; 96365; 99291; C1874

== ENCOUNTER 2023-05-30 22:21 | Emergency (ER) | payer BC, OTHER ==
[2023-05-30] MEDS ORDERED: MORPHINE SULFATE 4 MG/ML SYRINGE IVP STA (22:25)
[2023-05-30] MEDS ORDERED: DIPH,PERTUS(ACELL)TETVAC-LF 0.5 ML VIAL IM ONE (22:25)
--- NOTE | 2023-05-30 22:25 | ED ---
General Adult HPI - General Stated complaint: Dog Bite on Eye socket Time Seen by Provider: 05/30/23 22:23 Source: RN notes reviewed - History of Present Illness Initial comments: 48 year old male with no significant medical history presents to the emergency department with a chief complaint of dog bite. Patient bit by dog on left eye. He is unsure of when his last tetanus vaccine was. He denies any vision changes or vision loss. He does not take any medications prior to arrival. Animal is up-to-date on vaccines. He does wear contact lenses. - Related Data Previous Rx's Medication Instructions Recorded Aspirin 81 mg PO DAILY tab 08/17/19 Atorvastatin [Lipitor] 40 mg PO DAILY #90 tab 08/17/19 Clopidogrel [Plavix] 75 mg PO DAILY #90 tab 08/17/19 Metoprolol Tartrate [Lopressor] 25 mg PO BID #180 tab 08/17/19 lisinopriL [Zestril] 2.5 mg PO DAILY #90 tab 08/17/19 Allergies Allergy/AdvReac Type Severity Reaction Status Date / Time No Known Allergies Allergy Verified 05/30/23 22:41 Review of Systems ROS Statement: Those systems with pertinent positive or pertinent negative responses have been documented in the HPI. ROS Other: All systems not noted in ROS Statement are negative. Past Medical History Past Medical History: No Reported History History of Any Multi-Drug Resistant Organisms: MRSA Date of last positivie culture/infection: MRSA 2003 MDRO Source:: left elbow Past Surgical History: Joint Replacement, Orthopedic Surgery Additional Past Surgical History / Comment(s): septic elbow, right elbow fx, multiple ortho surgeries. Past Psychological History: No Psychological Hx Reported Past Alcohol Use History: Occasional Past Drug Use History: None Reported - Past Family History Father Family Medical History: Coronary Artery Disease (CAD) Additional Family Medical History / Comment(s): father had his first CA at age 40, and multiple CA's therafter Mother Family Medical History: No Reported History General Exam - General Exam Comments Initial Comments: Visual Physical Exam Vital signs reviewed General: Well-appearing, nontoxic, no acute distress. Head: Normocephalic, atraumatic Eyes: PERRLA, EOMI ENT: Airway patent Chest: Nonlabored breathing Skin: No visual rash, normal skin tone Neuro: Alert and oriented 3 Musculoskeletal: No gross abnormalities I performed the quick note portion of this exam, verbal signature Britt Roque PA-C General: Alert, in no acute distress Head: atraumatic normocephalic. Eyes PERRL, EOMI intact, mucous membranes moist, left eyelid with superficial laceration that covers the full upper lid. I movements are intact. No evidence of hyphema. Pupils equal and reactive. Respiratory: Lungs clear to auscultation bilaterally Cardiovascular: Heart rate regular rate and rhythm Abdominal: Soft without guarding or rebound Extremities: Normal inspection with full range of motion and normal capillary refill Neuroogic: alert and oriented 3, CN II-XII intact, able to ambulate with steady gait Skin: warm dry and intact with normal color Course Vital Signs 05/30/23 05/31/23 05/31/23 22:42 00:22 02:05 Temperature 97.9 F 98.0 F Pulse Rate 97 86 86 Respiratory 18 18 18 Rate Blood Pressure 155/106 145/111 145/115 O2 Sat by Pulse 98 97 97 Oximetry - Reevaluation(s) Reevaluation #1: 05/31/23 00:[address] results. Patient is declining pain medication at this time Reevaluation #2: 05/31/23 01:20 Should reevaluated. Patient is agreeable with the plan for transfer to [facility] as there was no return call from Opthomolgy from [facility]. Medical Decision Making - Medical Decision Making Was pt. sent in by a medical professional or institution (MONE [employer], COMPLETIONS MANAGER, urgent care, hospital, or [facility]...) When possible be specific @ -[No] Did you speak to anyone other than the patient for history (EMS, parent, family, police, friend...)? What history was obtained from this source @ -[No] Did you review nursing and triage notes (agree or disagree)? Why? @ -[I reviewed and agree with nursing and triage notes] Were old charts reviewed (outside hosp., previous admission, EMS record, old EKG, old radiological studies, urgent care reports/EKG's, [facility] records)? Report findings @ -[No old charts were reviewed] Differential Diagnosis (chest pain, altered mental status, abdominal pain women, abdominal pain men, vaginal bleeding, weakness, fever, dyspnea, syncope, headache, dizziness, GI bleed, back pain, seizure, CVA, palpatations, mental health, musculoskeletal)? @ -[not applicable] EKG interpreted by me (3pts min.). @ -[As above] X-rays interpreted by me (1pt min.). @ -[None done] CT interpreted by me (1pt min.). @ -CT facial bones does not reveal any osseous process. There is a left upper lid soft tissue laceration. U/S interpreted by me (1pt. min.). @ -[None done] What testing was considered but not performed or refused? (CT, X-rays, U/S, labs)? Why? @ -[None] What meds were considered but not given or refused? Why? @ -[None] Did you discuss the management of the patient with other professionals (professionals i.e. , PA, COMPLETIONS MANAGER, lab, RT, psych nurse, social services technician, packing machine pilot can router, teacher, peace officer, hospice case manager)? Give summary @ -Attempted to discuss the case with ophthalmology on-call [facility]. There was no return call. - Case discussed with Dr. Hameed, [facility] attending who agrees and accepts the patient for ER to ER transfer. Was smoking cessation discussed for >3mins.? @ -[No] Was critical care preformed (if so, how long)? @ -[No] Were there social determinants of health that impacted care today? How? (Homelessness, low income, unemployed, alcoholism, drug addiction, transportation, low edu. Level, literacy, decrease access to med. care, detention, rehab)? @ -[No] Was there de-escalation of care discussed even if they declined (Discuss DNR or withdrawal of care, Hospice)? DNR status @ -[No] What co-morbidities impacted this encounter? (DM, HTN, Smoking, COPD, CAD, Cancer, CVA, ARF, Chemo, Hep., AIDS, mental health diagnosis, sleep apnea, morbid obesity)? @ -[None] Was patient admitted / discharged? Hospital course, mention meds given and route, prescriptions, significant lab abnormalities, going to OR and other pertinent info. @ -Transfer to [facility]. This is a 48-year-old male who presents the emergency department with dog bite. Patient had a thorough history and physical exam performed on the ED. Physical exam reveals soft tissue laceration to most of the left eye upper eyelid. Globe remains intact. Extraocular eye movements remain intact. Patient had lab work performed and imaging performed which was essentially unremarkable. They are agreeable with the plan for transfer to [facility]. The verbalized that they would like to travel via private auto. Patient was given morphine and Dilaudid with symptomatic relief. He was updated on his tetanus vaccination. Case discussed with WILFREDO Huynh who agrees with plan of care Undiagnosed new problem with uncertain prognosis? @ -[No] Drug Therapy requiring intensive monitoring for toxicity (Heparin, Nitro, Insulin, Cardizem)? @ -[No] Were any procedures done? @ -[No] Diagnosis/symptom? @ -Left upper eyelid laceration - Dog Bite Acute, or Chronic, or Acute on Chronic? @ -Acute Uncomplicated (without systemic symptoms) or Complicated (systemic symptoms)? @ -Complicated Side effects of treatment? @ -[No] Exacerbation, Progression, or Severe Exacerbation? @ -[No] Poses a threat to life or bodily function? How? (Chest pain, USA, CA, pneumonia, PE, COPD, DKA, ARF, appy, cholecystitis, CVA, Diverticulitis, Homicidal, Suicidal, threat to staff... and all critical care pts) @ -Moderate likelihood with increased risk for infection - Lab Data Result diagrams: 05/31/23 00:45 05/31/23 00:45 Lab Results 05/31/23 05/31/23 05/31/23 Range/Units 00:45 00:45 00:45 WBC 7.7 (3.8-10.6) k/uL RBC 4.75 (4.30-5.90) m/uL Hgb 15.5 (13.0-17.5) gm/dL Hct 43.6 (39.0-53.0) % MCV 91.7 (80.0-100.0) fL MCH 32.7 (25.0-35.0) pg MCHC 35.6 (31.0-37.0) g/dL RDW 12.9 (11.5-15.5) % Plt Count 206 (150-450) k/uL MPV 7.6 Neutrophils % 65 % Lymphocytes % 23 % Monocytes % 6 % Eosinophils % 4 % Basophils % 0 % Neutrophils # 5.0 (1.3-7.7) k/uL Lymphocytes # 1.8 (1.0-4.8) k/uL Monocytes # 0.5 (0-1.0) k/uL Eosinophils # 0.3 (0-0.7) k/uL Basophils # 0.0 (0-0.2) k/uL PT 10.0 (9.0-12.0) sec INR 0.9 (<1.2) APTT 24.4 (22.0-30.0) sec Sodium 140 (137-145) mmol/L Potassium 4.4 (3.5-5.1) mmol/L Chloride 105 (98-107) mmol/L Carbon Dioxide 23 (22-30) mmol/L Anion Gap 12 mmol/L BUN 18 (9-20) mg/dL Creatinine 0.86 (0.66-1.25) mg/dL Est GFR (CKD-EPI)AfAm >90 (>60 ml/min/1.73 sqM) Est GFR (CKD-EPI)NonAf >90 (>60 ml/min/1.73 sqM) Glucose 96 (74-99) mg/dL Calcium 9.2 (8.4-10.2) mg/dL Total Bilirubin 0.5 (0.2-1.3) mg/dL AST 38 (17-59) U/L ALT 35 (4-49) U/L Alkaline Phosphatase 80 (38-126) U/L Total Protein 7.8 (6.3-8.2) g/dL Albumin 5.0 (3.5-5.0) g/dL Blood Type Blood Type Recheck Bld Type Recheck Status Antibody Screen Spec Expiration Date 05/31/23 Range/Units 01:10 WBC (3.8-10.6) k/uL RBC (4.30-5.90) m/uL Hgb (13.0-17.5) gm/dL Hct (39.0-53.0) % MCV (80.0-100.0) fL MCH (25.0-35.0) pg MCHC (31.0-37.0) g/dL RDW (11.5-15.5) % Plt Count (150-450) k/uL MPV Neutrophils % % Lymphocytes % % Monocytes % % Eosinophils % % Basophils % % Neutrophils # (1.3-7.7) k/uL Lymphocytes # (1.0-4.8) k/uL Monocytes # (0-1.0) k/uL Eosinophils # (0-0.7) k/uL Basophils # (0-0.2) k/uL PT (9.0-12.0) sec INR (<1.2) APTT (22.0-30.0) sec Sodium (137-145) mmol/L Potassium (3.5-5.1) mmol/L Chloride (98-107) mmol/L Carbon Dioxide (22-30) mmol/L Anion Gap mmol/L BUN (9-20) mg/dL Creatinine (0.66-1.25) mg/dL Est GFR (CKD-EPI)AfAm (>60 ml/min/1.73 sqM) Est GFR (CKD-EPI)NonAf (>60 ml/min/1.73 sqM) Glucose (74-99) mg/dL Calcium (8.4-10.2) mg/dL Total Bilirubin (0.2-1.3) mg/dL AST (17-59) U/L ALT (4-49) U/L Alkaline Phosphatase (38-126) U/L Total Protein (6.3-8.2) g/dL Albumin (3.5-5.0) g/dL Blood Type O Positive Blood Type Recheck No Previous Record Bld Type Recheck Status CABO Indicated Antibody Screen NEGATIVE Spec Expiration Date 06/03/20232309 Disposition Clinical Impression: Dog bite, Superficial trauma of left eyelid Disposition: OTHER INSTITUTION NOT DEFINED Condition: Stable Instructions (If sedation given, give patient instructions): Animal Bite (ED) Is patient prescribed a controlled substance at d/c from ED?: No Referrals: Fish Lopez MD [Primary Care Provider] - 1-2 days Time of Disposition: 01:21 - Out of Hospital Transfer - Req. Specs Out of Hospital Transfer - Requested Specifics: Other Emergency Center ([facility]
[2023-05-30 22:44] VITALS: RESP 18
--- NOTE | 2023-05-31 00:08 | CT ---
EXAM: CT Maxillofacial Without Intravenous Contrast CLINICAL HISTORY: ITS.REASON CT Reason: trauma/dog bite TECHNIQUE: Axial computed tomography images of the face without intravenous contrast. CTDI is 22.5 mGy and DLP is 504.9 mGy-cm. This CT exam was performed using one or more of the following dose reduction techniques: automated exposure control, adjustment of the mA and/or kV according to patient size, and/or use of iterative reconstruction technique. COMPARISON: None. FINDINGS: Bones/joints: Leftward deviation of the nasal septum associated spur. Degenerative change the cervical spine. No acute fracture. Soft tissues: See below. Orbits: Left periorbital laceration. Sinuses: Mild mucosal thickening in the maxillary sinuses.. No air- fluid levels. IMPRESSION: 1. Left periorbital laceration. 2. No acute facial fracture or radiodense foreign body.
[2023-05-31 00:23] VITALS: PULSE 86
[2023-05-31] MEDS ORDERED: HYDROmorphone 1 MG/ML 1 ML SYRINGE IVP STA (01:05)
[2023-05-31 01:18] LABS: Basophils % (A) 0 %; Eosinophils # (A) 0.3 k/uL (0-0.7); Eosinophils % (A) 4 %; HCT 43.6 % (39.0-53.0); HGB 15.5 gm/dL (13.0-17.5); Lymphocytes # (A) 1.8 k/uL (1.0-4.8); Lymphocytes % (A) 23 %; MCH 32.7 pg (25.0-35.0); MCHC 35.6 g/dL (31.0-37.0); MCV 91.7 fL (80.0-100.0); Mean Platelet Volume 7.6; Monocytes # (A) 0.5 k/uL (0-1.0); Monocytes % (A) 6 %; Neutrophils % (A) 65 %; Platelet Count 206 k/uL (150-450); RBC 4.75 m/uL (4.30-5.90); RDW 12.9 % (11.5-15.5); WBC 7.7 k/uL (3.8-10.6)
[2023-05-31 01:23] LABS: INR 0.9 (<1.2); Partial Thromboplastin Time 24.4 sec (22.0-30.0)
[2023-05-31 01:26] LABS: ALT 35 U/L (4-49); AST 38 U/L (17-59); African American GFR (CKD) >90 (>60 ml/min/1.73 sqM); Alkaline Phosphatase 80 U/L (38-126); Anion Gap 12 mmol/L; Blood Urea Nitrogen 18 mg/dL (9-20); Calcium 9.2 mg/dL (8.4-10.2); Carbon Dioxide 23 mmol/L (22-30); Chloride 105 mmol/L (98-107); Glucose 96 mg/dL (74-99); Non-African American GFR(CKD) >90 (>60 ml/min/1.73 sqM); Potassium 4.4 mmol/L (3.5-5.1); Sodium 140 mmol/L (137-145); Total Bilirubin 0.5 mg/dL (0.2-1.3); Total Protein 7.8 g/dL (6.3-8.2)
[2023-05-31 02:09] VITALS: BP 145/115; TEMP 98
== END 2023-05-31 02:10 | disposition other institution (70) ==
LOC: EC 22:21
DX: S01.152A Open bite of left eyelid and periocular area, initial encounter (principal); Z23 Encounter for immunization; W54.0XXA Bitten by dog, initial encounter
CPT/HCPCS: 90471; 96374; 96375; 36415; 86900; 86901; 80053; 85025; 85610; 85730; 86850; 70486; 90715; 99285; J2270; J1170; 99284